=== PATIENT | female | born 1980 | race Caucasian/White ===

== ENCOUNTER 2017-01-26 08:51 | Emergency (ER) | payer SELFPAY ==
[~2017-01-26] VITALS: Ht 157.5 cm; Wt 77.1 kg
[~2017-01-26 08:51] MED LIST: CIPR500T94 PO; PHEN-318 PO
--- NOTE | 2017-01-26 09:15 | PHYS DOC ---
Past History Past Medical History: Anxiety, Depression, Diabetes, Other Past Surgical History: Alcohol Use: Rarely Drug Use: None Adult General Chief Complaint Chief Complaint: MULTIPLE COMPLAINTS HPI HPI Patient is a 36 yo female presenting to ED for evaluation of abdominal pain, nausea, dysuria, vaginal discharge, BL leg cramps. Symptoms have been going off and on for 2 weeks. Pain is in diffuse lower abdomen, pelvic, low back. Nothing makes it better or worse, crampy pain. No fevers, chills, vomiting, diarrhea, constipation. Periods have been irregular with some heavier bleeding. She says she has had 3 C-sections but no other abdominal surgeries. Review of Systems Review of Systems Constitutional: Denies fever or chills [] Cardiovascular: No additional information not addressed in HPI [] GI: + abdominal pain, nausea. No vomiting, bloody stools or diarrhea [] : Denies dysuria or hematuria [] Musculoskeletal: Denies back pain or joint pain [] Integument: Denies rash or skin lesions [] Neurologic: Denies headache, focal weakness or sensory changes [] Allergies Allergies Allergies Coded Allergies Type Severity Reaction Last Updated Verified erythromycin base Allergy Unknown rash/swelling 09/18/15 Yes Physical Exam Physical Exam Constitutional: Well developed, well nourished, no acute distress, non-toxic appearance. [] HENT: Normocephalic, atraumatic, bilateral external ears normal, oropharynx moist, no oral exudates, nose normal. [] Eyes: PERRLA, EOMI, conjunctiva normal, no discharge. [] Cardiovascular:Heart rate regular rhythm, no murmur [] Lungs & Thorax: Bilateral breath sounds clear to auscultation [] Abdomen: Bowel sounds normal, soft, no tenderness, no masses, no pulsatile masses. [] TEST MAN exam revealed thick white vaginal discharge with reddish cervix mucosa. Cervical motion tenderness in addition to left adnexal tenderness but no right adnexal tenderness. Skin: Warm, dry, no erythema, no rash. [] Back: No tenderness, no CVA tenderness. [] Extremities: No tenderness, no cyanosis, no clubbing, ROM intact, no edema. [] Neurologic: Alert and oriented X 3, normal motor function, normal sensory function, no focal deficits noted. [] Current Patient Data Vital Signs Vital Signs Date Time Temp Pulse Resp B/P Pulse Ox O2 Delivery O2 Flow Rate FiO2 01/26/17 08:55 98.6 86 20 99 Room Air EKG EKG [] Radiology/Procedures Radiology/Procedures [] Course & Med Decision Making Course & Med Decision Making Patient with nonspecific abdominal pain with some abnormal disc discharge and cervical motion tenderness on exam. Her repeat abdominal exam is benign. She has nonspecific abdominal pain and has cervicitis may have early PID such she will receive Rocephin and Zithromax here in the emergency department and then told to abstain from sex until the results of her tests come back. Patient also told that she needs to take more iron into her diet and I will prescribe her iron supplements as well. Patient will be prescribed [place] Zofran and iron and told to follow with her primary care provider early next week and come back to the ER sooner with worsening pain fevers vomiting or emergent concerns. Dragon Disclaimer Dragon Disclaimer This chart was dictated in whole or in part using Voice Recognition software in a busy, high-work load, and often noisy Emergency Department environment. It may contain unintended and wholly unrecognized errors or omissions. Departure Departure: Impression: Primary Impression: Cervicitis Additional Impressions: Abdominal pain Anemia Disposition: HOME, SELF-CARE Condition: GOOD Referrals: PCP,NO (PCP) TRAE DAVIDSON MD Patient Instructions: Abdominal Pain (Nonspecific) Additional Instructions: TAKE IBUPROFEN FOR PAIN AND THE NORCO FOR BREAKTHROUGH PAIN. MAKE SURE YOU ARE GETTING MORE IRON IN YOUR DIET. FOLLOW WITH A PRIMARY CARE PROVIDER NEXT WEEK TO ENSURE IMPROVEMENT AND COME BACK TO THE ED SOONER WITH ANY NEW OR WORSENING PAIN, FEVERS, VOMITING, OR OTHER GENERAL CONCERNS. THANK YOU! Problem Qualifiers Additional Impressions: Abdominal pain Abdominal location: lower abdomen, unspecified Qualified Code: R10.30 - Lower abdominal pain, unspecified Anemia Anemia type: iron deficiency Iron deficiency anemia type: inadequate dietary iron intake Qualified Code: D50.8 - Other iron deficiency anemias CLEMENTE ARMAS DO Jan 26, 2017 09:15
[2017-01-26] MEDS: KETOROLAC 30 MG/ML VIAL. IV ONE (09:38)
[2017-01-26] MEDS: ONDANSETRON PF 4 MG/2 ML VIAL. IV ONE (09:38)
[2017-01-26] MEDS: IV NORMAL SALINE 1,000ML 1,000 ML IV SCH (09:39)
[2017-01-26] MEDS ORDERED: HYDR-971 PO ×2 (09:43→10:23)
[2017-01-26 09:57] LABS: BASO % 1 % (0-3); EOS % 0 % (0-3); HEMATOCRIT 28.3 % (36.0-47.0); HEMOGLOBIN 8.5 g/dL (12.0-15.5); LYMPH # 2.5 x10^3/uL (1.0-4.8); LYMPH % 43 % (24-48); MEAN CORPUSCULAR HEMOGLOBIN 18 pg (25-35); MEAN CORPUSCULAR HGB CONC 30 g/dL (31-37); MEAN CORPUSCULAR VOLUME 61 fL (79-100); MONO # 0.4 x10^3/uL (0.0-1.1); MONO % 7 % (0-9); NEUT # 2.9 x10^3uL (1.8-7.7); NEUT % 50 % (31-73); PLATELET COUNT 369 x10^3/uL (140-400); RED BLOOD COUNT 4.65 x10^6/uL (3.50-5.40); RED CELL DISTRIBUTION WIDTH 21.1 % (11.5-14.5); WHITE BLOOD COUNT 5.8 x10^3/uL (4.0-11.0)
[2017-01-26 10:04] LABS: BACTERIA,URINE 0 /HPF (0-FEW); BILIRUBIN,URINE NEG (NEG); CLARITY,URINE CLEAR; COLOR,URINE YELLOW; GLUCOSE,URINE NEG (NEG); NITRITE,URINE NEG (NEG); RBC,URINE RARE /HPF (0-2); SQUAMOUS EPITHELIAL CELL,UR MOD /LPF; UROBILINOGEN,URINE 0.2 mg/dL (0.2 mg/dL); WBC,URINE RARE /HPF (0-4)
[2017-01-26 10:12] LABS: ALBUMIN 3.4 g/dL (3.4-5.0); ALBUMIN/GLOBULIN RATIO 0.8 (1.0-1.7); CALCIUM 8.4 mg/dL (8.5-10.1); CREATININE 0.9 mg/dL (0.6-1.0); GFR 70.5; POTASSIUM 3.9 mmol/L (3.5-5.1); TOTAL BILIRUBIN 0.4 mg/dL (0.2-1.0); TOTAL PROTEIN 7.7 g/dL (6.4-8.2)
[2017-01-26] MEDS ORDERED: ONDA4TAB10 SL (10:23)
[2017-01-26] MEDS ORDERED: DOXY100T PO (10:23)
[2017-01-26] MEDS ORDERED: FERR-26 PO (10:23)
[2017-01-26] MEDS ORDERED: CEFTRIAXONE SODIUM 1 GM VIAL IV ONE (10:27)
[2017-01-26] MEDS ORDERED: IV NORMAL SALINE 50ML 50 ML ONE (10:27)
[2017-01-26] MEDS: CEFTRIAXONE SODIUM 1 GM in IV NORMAL SALINE 50ML 50 ML IV ONE (10:33)
[2017-01-26] MEDS ORDERED: CIPROFLOXACIN HCL 500 MG TABLET PO SCH (10:45)
[2017-01-26 10:46] LABS: ANISOCYTOSIS MOD; HYPOCHROMIA MOD; MICROCYTOSIS MOD; PLT ESTIMATE ADEQUATE (ADEQUATE); POLYCHROMASIA SLIGHT; SPHEROCYTES FEW
[2017-01-26 10:47] LABS: SCHISTOCYTES OCC; TARGET CELLS MOD
[2017-01-26] MEDS: MORPHINE SULFATE 5 MG/ML SYRINGE. IV ONE (11:04)
[2017-01-26] MEDS: AZITHROMYCIN 250 MG TABLET. PO ONE (11:05)
[2017-01-26 11:27] VITALS: BP 151/80
[2017-01-29 19:13] LABS: CHLAMYDIA PROBE Negative (Negative)
== END 2017-01-26 11:10 | disposition home or self-care (01) ==
LOC: ER 08:51
DX: N72 Inflammatory disease of cervix uteri (principal); R10.9 Unspecified abdominal pain; D64.9 Anemia, unspecified; E11.9 Type 2 diabetes mellitus without complications; Z88.1 Allergy status to other antibiotic agents
CPT/HCPCS: 36415; 80053; 81001; 81025; 82550; 83690; 85008; 85027; 87491; 87591; 96361; 96365; 96375; 99284; J0456; J0696; J1885; J2270; J2405; Q0111; J7030

== ENCOUNTER 2017-05-10 21:41 | Emergency (ER) | payer SELFPAY ==
[~2017-05-10] VITALS: Ht 157.5 cm; Wt 77.1 kg
[~2017-05-10 21:41] MED LIST changes: +DOXY100T PO; +FERR-26 PO; +HYDR-971 PO; +ONDA4TAB10 SL
[2017-05-10 22:26] LABS: COLOR,URINE STRAW
[2017-05-10 22:27] LABS: BACTERIA,URINE 0 /HPF (0-FEW); BILIRUBIN,URINE NEG (NEG); CLARITY,URINE CLEAR; GLUCOSE,URINE NEG (NEG); NITRITE,URINE NEG (NEG); RBC,URINE OCC /HPF (0-2); SQUAMOUS EPITHELIAL CELL,UR MOD /LPF; UROBILINOGEN,URINE 0.2 mg/dL (0.2 mg/dL)
[2017-05-10] MEDS ORDERED: ACET325T9 PO (22:42)
[2017-05-10] MEDS ORDERED: SULF1TAB24 PO (22:42)
[2017-05-10] MEDS ORDERED: NAPR275T59 PO (22:42)
--- NOTE | 2017-05-10 22:43 | PHYS DOC ---
Past History Past Medical History: Anxiety, Depression, Diabetes, Other Past Surgical History: Alcohol Use: Rarely Drug Use: None Adult General Chief Complaint Chief Complaint: ABSCESS [facility] HPI Patient is a pleasant 37-year-old female who presents with a history of 4 days of localized swelling and redness to the inside of her right groin. She does shave that area of her groin and she knows he small area of raised tissue that gotten progressively more tender and larger over the last 4 days. The pain is worse when she walks she also describes a mild dysuria subjective chills and fevers as well. She also has some noted some lymphadenopathy in that right inguinal crease. She has had a prior cervicitis in the past but denies any new history of sexual transmitted diseases she has not had any new sexual contacts or trauma to her vagina. Patient denies any vaginal bleeding or discharge. She also denies any back pain, nausea, vomiting, diarrhea or the possibility that she is . Pain is a moderate for 10 worse with certain movements. Which is why she came in tonight because the sharp pains gotten progressively worse. She's never had an abscess or prior infection of the lower pelvis Review of Systems Review of Systems Constitutional: Subjective fevers and chills at home Eyes: Denies change in visual acuity, redness, or eye pain [] HENT: Denies nasal congestion or sore throat [] Respiratory: Denies cough or shortness of breath [] Cardiovascular: No additional information not addressed in HPI [] GI: Denies abdominal pain, nausea, vomiting, bloody stools or diarrhea [] : Patient has described a little dysuria and pain with walking. Musculoskeletal: Denies back pain or joint pain [] Integument: Denies rash or skin lesions [] Neurologic: Denies headache, focal weakness or sensory changes [] Endocrine: Denies polyuria or polydipsia [] Allergies Allergies Allergies Coded Allergies Type Severity Reaction Last Updated Verified erythromycin base Allergy Unknown rash/swelling 09/18/15 Yes Physical Exam Physical Exam Agents vital signs are stable she is afebrile her blood pressure is 132/98 Constitutional: Well developed, well nourished, no acute distress, non-toxic appearance. [] Cardiovascular:Heart rate regular rhythm, no murmur [] Lungs & Thorax: Bilateral breath sounds clear to auscultation [] Abdomen: Bowel sounds normal, soft, no tenderness, no masses, no pulsatile masses. [] Skin: Small 1 cm x 2 similar area of induration and swelling in the right inguinal crease about 2 cm lateral of the labia majora on the right. It is well- demarcated with mild erythema. There is minimal soft tissue swelling or induration of the tissue. There is no point of drainage Back: No tenderness, no CVA tenderness. [] Neurologic: Alert and oriented X 3, Psychologic: Affect normal, judgement normal, mood normal. [] Current Patient Data Lab Results Laboratory Tests Test 05/10/17 21:50 Urine Collection Type Unknown Urine Color Straw Urine Clarity Clear Urine pH 5.5 Urine Specific [place] 1.015 Urine Protein Neg (NEG-TRACE) Urine Glucose (UA) Neg mg/dL (NEG) Urine Ketones (Stick) Neg mg/dL (NEG) Urine Blood Neg (NEG) Urine Nitrite Neg (NEG) Urine Bilirubin Neg (NEG) Urine Urobilinogen Dipstick 0.2 mg/dL (0.2 mg/dL) Urine Leukocyte Esterase Neg (NEG) Urine RBC Occ /HPF (0-2) Urine WBC 1-4 /HPF (0-4) Urine Squamous Epithelial Cells Mod /LPF Urine Bacteria 0 /HPF (0-FEW) EKG EKG [] Radiology/Procedures Radiology/Procedures [] Course & Med Decision Making Course & Med Decision Making Pertinent Labs and Imaging studies reviewed. (See chart for details) she presents with suspected early abscess of the right lower groin. It is likely associated with shaving and a small inguinal infected hair is gotten progressively worse. We did a bedside ultrasound given the size and location of the wound there is no obvious collection of fluid located below the surface of the tissues. This is an early abscess at best not amenable to I&D at this time. Patient be placed on appropriate pain medications antibiotics and close follow- up to ensure that drainage is not facilitated by I&D. Rand is clearly show signs of epithelial cells signs of contamination but no leuk esterase, no nitrates, no white blood cells and no bacteria. [] Dragon Disclaimer Dragon Disclaimer This chart was dictated in whole or in part using Voice Recognition software in a busy, high-work load, and often noisy Emergency Department environment. It may contain unintended and wholly unrecognized errors or omissions. Departure Departure: Impression: Primary Impression: Cellulitis Disposition: HOME, SELF-CARE Condition: STABLE Referrals: PCP,VICK (PCP) Patient Instructions: Cellulitis Additional Instructions: These return for any new or increasing symptoms despite treatment please return if you have any question concerns, fevers, chills or spreading of this wound or lesion. Scripts Acetaminophen (TYLENOL) 325 Mg Tablet 1-2 TAB PO QID, #30 TAB 2 Refills Prov: SHANNON VANEGAS MD 05/10/17 Naproxen Sodium (NAPROXEN SODIUM) 275 Mg Tablet 275 MG PO BID for 7 Days, #14 TAB Prov: SHANNON VANEGAS MD 05/10/17 Sulfamethoxazole/Trimethoprim (BACTRIM DS TABLET) 1 Each Tablet 1 TAB PO BID, #20 TAB Prov: SHANNON VANEGAS MD 05/10/17 SHANNON VANEGAS MD May 10, 2017 22:43
[2017-05-10] MEDS ORDERED: NAPROXEN 500 MG TABLET PO ONE (23:00)
[2017-05-10] MEDS ORDERED: SMZ/TMP 800/160MG TABLET. PO ONE (23:00)
[2017-05-10 23:12] VITALS: BP 132/89
== END 2017-05-10 23:05 | disposition home or self-care (01) ==
LOC: ER 21:41
DX: L03.311 Cellulitis of abdominal wall (principal); E11.9 Type 2 diabetes mellitus without complications; Z88.1 Allergy status to other antibiotic agents
CPT/HCPCS: 81001; 99284-25

== ENCOUNTER 2018-05-18 20:07 | Emergency (ER) | payer SELFPAY ==
[~2018-05-18] VITALS: Ht 157.5 cm; Wt 77.1 kg
[~2018-05-18 20:07] MED LIST changes: +ACET325T9 PO; -FERR-26 PO; +FERR325T14 PO; +NAPR275T59 PO; +SULF1TAB24 PO
[2018-05-18] MEDS ORDERED: IV NORMAL SALINE 1,000ML 1,000 ML IV ONE (20:45)
--- NOTE | 2018-05-18 20:48 | PHYS DOC ---
Past History Past Medical History: Diabetes, Fibromyalgia Past Surgical History: Alcohol Use: None Drug Use: None Adult General Chief Complaint Chief Complaint: ABDOMINAL PAIN IN HPI HPI 38-year-old female presents with right lower quadrant abdominal pain for 2 days. The patient took a home test that was positive. Her last period was April 06. She presents today because she has been having right lower quadrant cramping and an increase in vaginal discharge. She describes the discharge edge of a yellowish color and it is been heavier today than yesterday. Patient has a history of both bacterial infections as well as yeast infections. She states that it is pruritic at this time. She has had Diflucan in the past with good results. Patient denies fever or chills. She denies any vaginal bleeding or spotting. She would like to have a GC chlamydia done "just in case". The patient has not had an ultrasound yet. Review of Systems Review of Systems Constitutional: Denies fever or chills [] Eyes: Denies change in visual acuity, redness, or eye pain [] HENT: Denies nasal congestion or sore throat [] Respiratory: Denies cough or shortness of breath [] Cardiovascular: No additional information not addressed in HPI [] GI: Right lower quadrant abdominal pain[] : Change in vaginal discharge, pruritus of the vagina[] Musculoskeletal: Denies back pain or joint pain [] Integument: Denies rash or skin lesions [] Neurologic: Denies headache, focal weakness or sensory changes [] Endocrine: Denies polyuria or polydipsia [] All other systems were reviewed and found to be within normal limits, except as documented in this note. Current Medications Current Medications Current Medications Medications (Trade) Dose Ordered Sig/Yola Start Time Stop Time Status Last Admin Dose Admin Sodium Chloride 1,000 ml @ 1,000 mls/hr 1X ONCE 05/18/18 20:45 05/18/18 21:44 Allergies Allergies Allergies Coded Allergies Type Severity Reaction Last Updated Verified erythromycin base Allergy Unknown rash/swelling 09/18/15 Yes Physical Exam Physical Exam Constitutional: Well developed, well nourished, no acute distress, non-toxic appearance. [] HENT: Normocephalic, atraumatic, bilateral external ears normal, oropharynx moist, no oral exudates, nose normal. [] Eyes: PERRLA, EOMI, conjunctiva normal, no discharge. [] Neck: Normal range of motion, no tenderness, supple, no stridor. [] Cardiovascular:Heart rate regular rhythm, no murmur [] Lungs & Thorax: Bilateral breath sounds clear to auscultation [] Abdomen: Mild tenderness in the right lower quadrant without guarding or rebound. [] Skin: Warm, dry, no erythema, no rash. [] Back: No tenderness, no CVA tenderness. [] Extremities: No tenderness, no cyanosis, no clubbing, ROM intact, no edema. [] Neurologic: Alert and oriented X 3, normal motor function, normal sensory function, no focal deficits noted. [] Psychologic: Affect normal, judgement normal, mood normal. : [] Current Patient Data Lab Results Laboratory Tests Test 05/18/18 19:41 POC Urine HCG, Qualitative hcg positive (Negative) EKG EKG [] Radiology/Procedures Radiology/Procedures [] Impressions: Indication:PELVIC CRAMPING X'S 1 WEEK. TECHNIQUE: Grayscale, color Doppler and spectral waveform images of the pelvis obtained. COMPARISON: None FINDINGS: The uterus measures 9.7 x 6.4 x 5.2 cm. Single intrauterine gestation sac is seen. The right ovary measures 2.3 x 3.2 x 2.1 cm and demonstrates evidence of blood flow. 2.0 x 1.9 x 1.7 cm well-circumscribed hypoechoic lesion is seen in the right ovary. The left ovary measures 2.0 x 2.3 x 2.0 cm and demonstrates evidence of blood flow. Healed sac is seen. [place]-rump length measures 0.33 cm corresponding to estimated gestation age of 6 weeks 0 days. Activity is seen in the rate of 131 bpm. IMPRESSION: 1. Single viable intrauterine corresponding to estimated gestation age of 6 weeks 0 days. 2. Likely corpus luteal cyst of in the right ovary. Electronically signed by: Krishan Guajardo DO (05/18/2018 10:54 PM) [facility] DICTATED AND SIGNED BY: KRISHAN GUAJARDO DO DATE: 05/18/180 CC: MERLIN ALATORRE DO; PCP,NO ~ Course & Med Decision Making Course & Med Decision Making Pertinent Labs and Imaging studies reviewed. (See chart for details) The patient urine is positive. Her serum is also positive. Her ultrasound shows 1 intrauterine fetus with an appropriate heart rate about 6 weeks gestation. The patient's results were significant for a UTI, BV, and a yeast infection. I will treat the patient with Augmentin for the UTI, metronidazole for the BV, and Diflucan for the yeast infection. I'll give her first dose of each of these in the ED and then a 5 day prescription for Augmentin, 7 days for metronidazole , and a single dose 150 mg Diflucan assuming her yeast infection may return after using these 2 antibiotics. The patient is stable for discharge at this time. [] Dragon Disclaimer Dragon Disclaimer This electronic medical record was generated, in whole or in part, using a voice recognition dictation system. Departure Departure: Referrals: PCP,VICK (PCP) Scripts Amoxicillin/Potassium Clav (AUGMENTIN 875-125 TABLET) 1 Each Tablet 1 TAB PO BID for 5 Days, #10 TAB Prov: MERLIN ALATORRE DO 05/19/18 Metronidazole (METRONIDAZOLE) 500 Mg Tablet 1 TAB PO BID, #14 TAB Prov: MERLIN ALATORRE DO 05/19/18 Fluconazole (DIFLUCAN) 150 Mg Tablet 1 TAB PO ONCE, #1 TAB 1 Refill Prov: MERLIN ALATORRE DO 05/19/18 MERLIN ALATORRE DO May 18, 2018 20:48
[2018-05-18 20:55] LABS: BASO % 1 % (0-3); EOS # 0.1 x10^3/uL (0.0-0.7); EOS % 1 % (0-3); HEMATOCRIT 31.5 % (36.0-47.0); HEMOGLOBIN 10.1 g/dL (12.0-15.5); LYMPH # 2.2 x10^3/uL (1.0-4.8); LYMPH % 29 % (24-48); MEAN CORPUSCULAR HEMOGLOBIN 24 pg (25-35); MEAN CORPUSCULAR HGB CONC 32 g/dL (31-37); MEAN CORPUSCULAR VOLUME 74 fL (79-100); MONO # 0.8 x10^3/uL (0.0-1.1); MONO % 10 % (0-9); NEUT # 4.5 x10^3uL (1.8-7.7); NEUT % 60 % (31-73); PLATELET COUNT 443 x10^3/uL (140-400); RED BLOOD COUNT 4.24 x10^6/uL (3.50-5.40); WHITE BLOOD COUNT 7.6 x10^3/uL (4.0-11.0)
[2018-05-18 21:03] LABS: CALCIUM 8.3 mg/dL (8.5-10.1); CREATININE 0.9 mg/dL (0.6-1.0); GFR 69.7; POTASSIUM 3.9 mmol/L (3.5-5.1)
[2018-05-18 21:03] LABS: BILIRUBIN,URINE NEG (NEG); CLARITY,URINE CLOUDY; COLOR,URINE YELLOW; GLUCOSE,URINE NEG (NEG); NITRITE,URINE NEG (NEG); UROBILINOGEN,URINE 0.2 mg/dL (0.2 mg/dL)
[2018-05-18 21:04] LABS: BACTERIA,URINE MANY /HPF (0-FEW)
[2018-05-18 21:05] LABS: SQUAMOUS EPITHELIAL CELL,UR MANY /LPF; YEAST,URINE PRESENT /HPF
[2018-05-18 21:20] LABS: ANISOCYTOSIS MOD; HYPOCHROMIA SLIGHT; MICROCYTOSIS SLIGHT; PLT ESTIMATE INCREASED (ADEQUATE)
[2018-05-18 21:21] LABS: OVALOCYTES OCC; POIKILOCYTOSIS SLIGHT; POLYCHROMASIA SLIGHT; TEAR DROP CELLS OCC
--- NOTE | 2018-05-18 22:58 | RAD ---
Indication:PELVIC CRAMPING X'S 1 WEEK. TECHNIQUE: Grayscale, color Doppler and spectral waveform images of the pelvis obtained. COMPARISON: None FINDINGS: The uterus measures 9.7 x 6.4 x 5.2 cm. Single intrauterine gestation sac is seen. The right ovary measures 2.3 x 3.2 x 2.1 cm and demonstrates evidence of blood flow. 2.0 x 1.9 x 1.7 cm well-circumscribed hypoechoic lesion is seen in the right ovary. The left ovary measures 2.0 x 2.3 x 2.0 cm and demonstrates evidence of blood flow. Healed sac is seen. [place]-rump length measures 0.33 cm corresponding to estimated gestation age of 6 weeks 0 days. Activity is seen in the rate of 131 bpm. IMPRESSION: 1. Single viable intrauterine corresponding to estimated gestation age of 6 weeks 0 days. 2. Likely corpus luteal cyst of in the right ovary. Electronically signed by: Krishan Linton DO (05/18/2018 10:54 PM) [facility]
[2018-05-18] MEDS ORDERED: AMOXICILLIN/K CLAV 875/125MG TABLET. PO ONE (23:45)
[2018-05-19] MEDS ORDERED: FLUC150T PO (00:02)
[2018-05-19] MEDS ORDERED: AMOX1TAB61 PO (00:02)
[2018-05-19] MEDS ORDERED: METR500T8 PO (00:02)
[2018-05-19] MEDS ORDERED: metroNIDAZOLE 500 MG TABLET ONE (00:11)
[2018-05-19] MEDS ORDERED: FLUCONAZOLE 100 MG TABLET. ONE ×2 (00:11)
[2018-05-19 00:15] VITALS: BP 123/84
[2018-05-19] MEDS ORDERED: FLUCONAZOLE 100 MG TABLET. PO ONE (00:30)
[2018-05-19] MEDS ORDERED: metroNIDAZOLE 500 MG TABLET PO ONE (00:30)
[2018-05-20 15:13] LABS: CHLAMYDIA PROBE Negative (Negative)
== END 2018-05-19 00:17 | disposition home or self-care (01) ==
LOC: ER 20:07
DX: O23.41 Unspecified infection of urinary tract in pregnancy, first trimester (principal); O23.591 Infection of other part of genital tract in pregnancy, first trimester; B96.89 Other specified bacterial agents as the cause of diseases classified elsewhere; O98.811 Other maternal infectious and parasitic diseases complicating pregnancy, first trimester; O24.911 Unspecified diabetes mellitus in pregnancy, first trimester; M79.7 Fibromyalgia; Z98.890 Other specified postprocedural states; Z88.1 Allergy status to other antibiotic agents; Z3A.01 Less than 8 weeks gestation of pregnancy
CPT/HCPCS: 36415; 76801; 80048; 81001; 81025; 84702; 85025; 87491; 87591; 99285; Q0111; J7030

== ENCOUNTER 2018-06-09 11:49 | Emergency (ER) | payer OTHER ==
[~2018-06-09] VITALS: Ht 157.5 cm; Wt 80.0 kg
[~2018-06-09 11:49] MED LIST changes: +AMOX1TAB61 PO; +FLUC150T PO; +METR500T8 PO
[2018-06-09 12:56] LABS: BILIRUBIN,URINE NEG (NEG); CLARITY,URINE TURBID; COLOR,URINE YELLOW; GLUCOSE,URINE NEG (NEG)
[2018-06-09 12:57] LABS: BACTERIA,URINE FEW /HPF (0-FEW); NITRITE,URINE NEG (NEG); RBC,URINE >40 /HPF (0-2); SQUAMOUS EPITHELIAL CELL,UR MANY /LPF; UROBILINOGEN,URINE 0.2 mg/dL (0.2 mg/dL); WBC,URINE 20-40 /HPF (0-4)
[2018-06-09 13:37] VITALS: BP 115/72
[2018-06-09] MEDS ORDERED: CEPH-264 PO (13:40)
--- NOTE | 2018-06-09 13:40 | PHYS DOC ---
Past History Past Medical History: Diabetes, Fibromyalgia, Migraines Past Surgical History: Alcohol Use: None Drug Use: None Adult General Chief Complaint Chief Complaint: PAIN ON URINATION HPI HPI Patient is a 38 year old female who presents with urinary frequency. Patient is L3 A1 at 9 weeks of gestation complaining of urinary frequency and dysuria since this morning without abdominal pain. Patient denies vaginal bleeding and discharge and pain during intercourse. Patient was seen 2 weeks ago with the same symptoms and had extensive evaluation including ultrasound that showed intrauterine and came with improvement of her condition. Review of Systems Review of Systems Constitutional: Denies fever or chills [] Eyes: Denies change in visual acuity, redness, or eye pain [] HENT: Denies nasal congestion or sore throat [] Respiratory: Denies cough or shortness of breath [] Cardiovascular: No additional information not addressed in HPI [] GI: Denies abdominal pain, nausea, vomiting, bloody stools or diarrhea [] : Reports urinary frequency and dysuria, denies hematuria Musculoskeletal: Denies back pain or joint pain [] Integument: Denies rash or skin lesions [] Neurologic: Denies headache, focal weakness or sensory changes [] Endocrine: Denies polyuria or polydipsia [] All other systems were reviewed and found to be within normal limits, except as documented in this note. Current Medications Current Medications Current Medications Medications (Trade) Dose Ordered Sig/Yola Start Time Stop Time Status Last Admin Dose Admin Ceftriaxone Sodium (Rocephin Im) 1 gm 1X ONCE 06/09/18 13:45 06/09/18 13:46 Allergies Allergies Allergies Coded Allergies Type Severity Reaction Last Updated Verified erythromycin base Allergy Unknown rash/swelling 09/18/15 Yes Physical Exam Physical Exam Constitutional: Well developed, well nourished, no acute distress, non-toxic appearance. [] HENT: Normocephalic, atraumatic Eyes: PERRLA, EOMI, conjunctiva normal, no discharge. [] Neck: Normal range of motion, no tenderness, supple, no stridor. [] Cardiovascular:Heart rate regular rhythm, no murmur [] Lungs & Thorax: Bilateral breath sounds clear to auscultation [] Abdomen: Bowel sounds normal, soft, no tenderness, no masses, no pulsatile masses. [] Skin: Warm, dry, no erythema, no rash. [] Back: No tenderness, no CVA tenderness. [] Extremities: No tenderness, no cyanosis, no clubbing, ROM intact, no edema. [] Neurologic: Alert and oriented X 3, normal motor function, normal sensory function, no focal deficits noted. [] Psychologic: Affect normal, judgement normal, mood normal. [] Current Patient Data Vital Signs Vital Signs Date Time Temp Pulse Resp B/P (MAP) Pulse Ox O2 Delivery O2 Flow Rate FiO2 06/09/18 12:00 98.1 84 18 99 Room Air Lab Results Laboratory Tests Test 06/09/18 12:14 Urine Collection Type Unknown Urine Color Yellow Urine Clarity Turbid Urine pH 5.5 Urine Specific [place] 1.015 Urine Protein 30 mg/dl (NEG-TRACE) Urine Glucose (UA) Neg mg/dL (NEG) Urine Ketones (Stick) Neg mg/dL (NEG) Urine Blood Large (NEG) Urine Nitrite Neg (NEG) Urine Bilirubin Neg (NEG) Urine Urobilinogen Dipstick 0.2 mg/dL (0.2 mg/dL) Urine Leukocyte Esterase Large (NEG) Urine RBC >40 /HPF (0-2) Urine WBC 20-40 /HPF (0-4) Urine Squamous Epithelial Cells Many /LPF Urine Bacteria Few /HPF (0-FEW) Urine Mucus Slight /LPF EKG EKG [] Radiology/Procedures Radiology/Procedures [] Course & Med Decision Making Course & Med Decision Making Pertinent Labs reviewed. (See chart for details) Evaluation of patient in ER showed 38-year-old female patient at 9 weeks of gestation with complaining of urinary frequency and dysuria since this morning. Patient was recently treated with Augmentin for UTI. Patient had unremarkable physical exam. UA showed 20-40 WBC and blood in urine. Patient treated with a dose of Rocephin in ER and plan discharge patient home with diagnosis of UTI and follow up with her BUDDER. Dragon Disclaimer Dragon Disclaimer This electronic medical record was generated, in whole or in part, using a voice recognition dictation system. Departure Departure: Impression: Primary Impression: Urinary tract infection during Disposition: HOME, SELF-CARE (at 1337) Condition: IMPROVED Referrals: PCP,NO (PCP) Patient Instructions: - Urinary Tract Infection Additional Instructions: Drink plenty of liquids Follow-up with your BUDDER in 3-5 days Return to ER if not getting better Scripts Cephalexin (KEFLEX) 500 Mg Capsule 1 CAP PO Q6HRS, #28 CAP Prov: ZAK LOPEZ MD 06/09/18 ZAK LOPEZ MD Jun 09, 2018 13:40
[2018-06-09] MEDS ORDERED: cefTRIAXone IM 1 GM VIAL IM ONE (13:45)
== END 2018-06-09 13:46 | disposition home or self-care (01) ==
LOC: ER 11:49
DX: O23.41 Unspecified infection of urinary tract in pregnancy, first trimester (principal); E11.9 Type 2 diabetes mellitus without complications; M79.7 Fibromyalgia; G43.909 Migraine, unspecified, not intractable, without status migrainosus; Z98.890 Other specified postprocedural states; Z88.1 Allergy status to other antibiotic agents; Z3A.09 9 weeks gestation of pregnancy
CPT/HCPCS: 81001; 87086; 96372; 99284; J0696

== ENCOUNTER 2021-03-18 12:26 | Emergency (ER) | payer OTHER ==
[~2021-03-18] VITALS: Ht 157.5 cm; Wt 80.0 kg
[~2021-03-18 12:26] MED LIST changes: +CEPH-264 PO; +HYDR-3165 PO; -HYDR-971 PO; +METR-34 PO; -METR500T8 PO
[2021-03-18 12:32] VITALS: BP 149/90
[2021-03-18] MEDS ORDERED: IBUPROFEN 800 MG TABLET. PO ONE (13:00)
--- NOTE | 2021-03-18 13:05 | PHYS DOC ---
Past History Past Medical History: Diabetes, Fibromyalgia, Migraines Past Surgical History: Alcohol Use: None Drug Use: None General Adult EDM: Chief Complaint: ANKLE PROBLEM HPI: HPI: Patient is a 41-year-old female coming in for right ankle pain and swelling. Patient was working and did not see a bump in the sidewalk and inverted her ankle and fell to the right side. Had some pain in her right side of her hip and her knee, but states has been better. Is not concerned about any injuries and has no to ambulate with pain. Concerned of pain and swelling to right ankle. Denies any previous injury to that ankle. Otherwise has been well. Does not take blood thinners. Denies any possibility of . Review of Systems: Review of Systems: All other systems within normal limits except for as noted in the HPI Current Medications: Current Meds: Current Medications Medications (Trade) Dose Ordered Sig/Yola Start Time Stop Time Status Last Admin Dose Admin Ibuprofen (Motrin) 800 mg 1X ONCE 03/18/21 13:00 03/18/21 13:01 UNV Allergies: Allergies: Allergies Coded Allergies Type Severity Reaction Last Updated Verified erythromycin base Allergy Unknown rash/swelling 09/18/15 Yes Physical Exam: PE: Constitutional: Well developed, well nourished, no acute distress, non-toxic appearance. [] HENT: Normocephalic, atraumatic, bilateral external ears normal, nose normal. [] Eyes: PERRLA, conjunctiva normal, no discharge. [] Neck: No rigidity, supple, no stridor. [] Cardiovascular: Regular rate and rhythm, brisk cap refill [] Lungs & Thorax: Non labored symmetric respirations, no tachypnea or respiratory distress [] Abdomen: Soft, nondistended. Skin: Warm, dry, no erythema, no rash. [] Back: Unremarkable Extremities: No deformities, range of motion grossly intact, no lower extremity edema. Right ankle exam: Swelling over lateral malleolus, no tenderness on medial malleolus, calcaneus, dorsum of the foot, or fifth metatarsal. [] Neurologic: Alert and oriented X 3, no focal deficits noted. [] Psychologic: Affect normal, judgement normal, mood normal. [] EKG: EKG: [] Radiology/Procedures: Radiology/Procedures: [place] [id number] IMAGING REPORT Signed PATIENT: ALLA DIAS ACCOUNT: [id number] : 1980 LOCATION: ER AGE: 41 SEX: F EXAM STATUS: REG ER ORD. PHYSICIAN: AJIT MEJIA MD REASON: lateral pain, swelling PROCEDURE: ANKLE RIGHT 3V Examination: 3 views of the right ankle HISTORY: History of lateral right ankle pain COMPARISON: None available FINDINGS: The alignment of the ankle mortise grossly appears unremarkable. Mild soft tis anabelle swelling identified lateral to lateral malleolus. IMPRESSION: Mild soft tissue swelling identified lateral to lateral malleolus likely soft tissue injury. Electronically signed by: Alejo Raphael MD (03/18/2021 1:17 PM) [id number] DICTATED AND SIGNED BY: ALEJO RAPHAEL MD DATE: 03/18/211309 CC: AJIT MEJIA MD; PCP,NO ~MTH0 0 [] Heart Score: C/O Chest Pain: No Risk Factors: Risk Factors: DM, Current or recent (<one month) smoker, HTN, HLP, family history of CAD, obesity. Risk Scores: Score 0 - 3: 2.5% MACE over next 6 weeks - Discharge Home Score 4 - 6: 20.3% MACE over next 6 weeks - Admit for Clinical Observation Score 7 - 10: 72.7% MACE over next 6 weeks - Early Invasive Strategies Course & Med Decision Making: Course & Med Decision Making Pertinent Labs and Imaging studies reviewed. (See chart for details) [] Dragon Disclaimer: Dragon Disclaimer: This electronic medical record was generated, in whole or in part, using a voice recognition dictation system. Departure Departure: Impression: Primary Impression: Moderate right ankle sprain Disposition: 01 HOME / SELF CARE / HOMELESS Condition: STABLE Referrals: PCP,NO (PCP) Patient Instructions: RICE - Routine Care for Injuries Scripts Ibuprofen (IBUPROFEN) 800 Mg Tablet 1 TAB PO TID PRN for PAIN, #30 TAB Prov: AJIT MEJIA MD 03/18/21 AJIT MEJIA MD Mar 18, 2021 13:04
--- NOTE | 2021-03-18 13:20 | RAD ---
Examination: 3 views of the right ankle HISTORY: History of lateral right ankle pain COMPARISON: None available FINDINGS: The alignment of the ankle mortise grossly appears unremarkable. Mild soft tissue swelling identified lateral to lateral malleolus. IMPRESSION: Mild soft tissue swelling identified lateral to lateral malleolus likely soft tissue injury. Electronically signed by: Alejo Raphael MD (03/18/2021 1:17 PM) [id number]
[2021-03-18] MEDS ORDERED: IBUP800T19 PO (13:26)
== END 2021-03-18 13:50 | disposition home or self-care (01) ==
LOC: ER 12:26
DX: S93.401A Sprain of unspecified ligament of right ankle, initial encounter (principal); E11.9 Type 2 diabetes mellitus without complications; Z88.1 Allergy status to other antibiotic agents; W18.39XA Other fall on same level, initial encounter; Y93.89 Activity, other specified; Y92.89 Other specified places as the place of occurrence of the external cause; Y99.8 Other external cause status
CPT/HCPCS: 36415; 73610; 82164; 99283-25

== ENCOUNTER 2022-02-06 20:16 | Emergency (ER) | payer SELFPAY ==
[~2022-02-06] VITALS: Ht 157.5 cm; Wt 86.4 kg
[~2022-02-06 20:16] MED LIST changes: +IBUP800T19 PO
--- NOTE | 2022-02-06 20:39 | PHYS DOC ---
Past History Past Medical History: Diabetes, Fibromyalgia, Migraines Additional Past Medical Histor: pseudotumor cerebrae Past Surgical History: Alcohol Use: None Drug Use: None General Adult EDM: Chief Complaint: CHEST PAIN HPI: HPI: 41-year-old female presents with elevated blood pressure and chest discomfort. The patient was at [facility] taking her blood pressure on a machine and it was 200s over 1 teens. This really freaked the patient out so she came to the emergency room. She also states having some mild chest pressure at the same time. The patient is supposed to be on blood pressure medicine but does not have insurance so she does not see a doctor and does not have any prescriptions. She has not been on them for quite some time. She denies shortness of breath or diaphoresis. She has no other complaints this time. On arrival her blood pressure is 161/109. Review of Systems: Review of Systems: Constitutional: Denies fever or chills Eyes: Denies change in visual acuity HENT: Denies nasal congestion or sore throat Respiratory: Denies cough or shortness of breath Cardiovascular: Chest pain GI: Denies abdominal pain, nausea, vomiting, bloody stools or diarrhea : Denies dysuria Musculoskeletal: Denies back pain or joint pain Integument: Denies rash Neurologic: Denies headache, focal weakness or sensory changes Endocrine: Denies polyuria or polydipsia Lymphatic: Denies swollen glands Psychiatric: Denies depression or anxiety Allergies: Allergies: Allergies Coded Allergies Type Severity Reaction Last Updated Verified erythromycin base Allergy Unknown rash/swelling 02/06/22 Yes Physical Exam: PE: Constitutional: Well developed, well nourished, obese, no acute distress, non- toxic appearance. [] HENT: Normocephalic, atraumatic, bilateral external ears normal, oropharynx moist, no oral exudates, nose normal. [] Eyes: PERRLA, EOMI, conjunctiva normal, no discharge. [] Neck: Normal range of motion, no tenderness, supple, no stridor. [] Cardiovascular: Heart rate regular rhythm, no murmur [] Lungs & Thorax: Bilateral breath sounds clear to auscultation [] Abdomen: Bowel sounds normal, soft, no tenderness, no masses, no pulsatile masses. [] Skin: Warm, dry, no erythema, no rash. [] Back: No tenderness, no CVA tenderness. [] Extremities: No tenderness, no cyanosis, no clubbing, ROM intact, no edema. [] Neurologic: Alert and oriented X 3, normal motor function, normal sensory function, no focal deficits noted. [] Psychologic: Affect normal, judgement normal, mood normal. [] Current Patient Data: Vital Signs: Vital Signs Date Time Temp Pulse Resp B/P (MAP) Pulse Ox O2 Delivery O2 Flow Rate FiO2 02/06/22 20:20 98.5 77 18 163/87 (112) 97 EKG: EKG: Sinus rhythm, rate 80, normal axis, no ST elevation depression. [] Radiology/Procedures: Radiology/Procedures: [] Heart Score: C/O Chest Pain: Yes HEART Score for Chest Pain: HEART Score for Chest Pain Response (Comments) Value History Slighlty/Non-Suspicious 0 ECG Normal 0 Age < 45 0 Risk Factors 1 or 2 Risk Factors 1 Troponin < Normal Limit 0 Total 1 Risk Factors: Risk Factors: DM, Current or recent (<one month) smoker, HTN, HLP, family history of CAD, obesity. Risk Scores: Score 0 - 3: 2.5% MACE over next 6 weeks - Discharge Home Score 4 - 6: 20.3% MACE over next 6 weeks - Admit for Clinical Observation Score 7 - 10: 72.7% MACE over next 6 weeks - Early Invasive Strategies Course & Med Decision Making: Course & Med Decision Making Pertinent Labs and Imaging studies reviewed. (See chart for details) The patient's EKG is unremarkable. Her labs are unremarkable. Her troponin is negative. I have given her 20 mg of lisinopril for her blood pressure. It is still quite elevated so ordered 0.2 of clonidine. Also given her 10 of hydralazine. I will discharge the patient on lisinopril/hydrochlorothiazide. She will take it daily potassium supplement. She has been on these in the past and tolerated them well. Advise she follow-up with a primary care physician soon as possible. She is stable for discharge at this time. [] Jhonnyon Disclaimer: Cale Disclaimer: This electronic medical record was generated, in whole or in part, using a voice recognition dictation system. Departure Departure: Impression: Primary Impression: Chest pain Additional Impression: Hypertension Disposition: HOME / SELF CARE / HOMELESS Condition: STABLE Referrals: PCP,NO (PCP) Patient Instructions: Chest Pain (Nonspecific), [id number], Hypertension, [id number] Scripts Lisinopril/Hydrochlorothiazide (LISINOPRIL-HCTZ 20-25 MG TAB) 1 Each Tablet 1 TAB PO DAILY for hypertention for 30 Days, #30 TAB Prov: MERLIN ALATORRE DO 02/06/22 MERLIN ALATORRE DO February 06, 2022 20:39
[2022-02-06 20:55] LABS: BASO # 0.1 x10^3/uL (0.0-0.2); BASO % 1 % (0-3); EOS # 0.1 x10^3/uL (0.0-0.7); EOS % 1 % (0-3); HEMATOCRIT 33.5 % (36.0-47.0); HEMOGLOBIN 10.8 g/dL (12.0-15.5); LYMPH # 1.8 x10^3/uL (1.0-4.8); LYMPH % 24 % (24-48); MEAN CORPUSCULAR HEMOGLOBIN 27 pg (25-35); MEAN CORPUSCULAR HGB CONC 32 g/dL (31-37); MEAN CORPUSCULAR VOLUME 83 fL (79-100); MONO # 0.8 x10^3/uL (0.0-1.1); MONO % 11 % (0-9); NEUT # 4.8 x10^3uL (1.8-7.7); NEUT % 63 % (31-73); PLATELET COUNT 258 x10^3/uL (140-400); RED BLOOD COUNT 4.03 x10^6/uL (3.50-5.40); RED CELL DISTRIBUTION WIDTH 15.6 % (11.5-14.5); WHITE BLOOD COUNT 7.6 x10^3/uL (4.0-11.0)
[2022-02-06 21:06] LABS: CREATININE 0.9 mg/dL (0.6-1.0); GFR 68.7; POTASSIUM 3.9 mmol/L (3.5-5.1)
[2022-02-06 21:12] LABS: ALBUMIN 3.3 g/dL (3.4-5.0); ALBUMIN/GLOBULIN RATIO 0.9 (1.0-1.7); TOTAL BILIRUBIN 0.3 mg/dL (0.2-1.0); TOTAL PROTEIN 6.8 g/dL (6.4-8.2)
[2022-02-06] MEDS ORDERED: LISINOPRIL 10 MG TABLET PO ONE (21:30)
[2022-02-06] MEDS ORDERED: cloNIDine HCL 0.1 MG TABLET PO ONE (21:45)
[2022-02-06] MEDS ORDERED: LISI1TAB39 PO (22:16)
[2022-02-06] MEDS ORDERED: hydrALAZINE 20 MG/ML VIAL. IV ONE (22:30)
--- NOTE | 2022-02-06 22:35 | RAD ---
EXAM: AP View of the chest DATE: 02/06/2022 8:58 PM INDICATION: Reason: CP / Spl. Instructions: / History: COMPARISON: No Prior FINDINGS: The heart is not enlarged. Mediastinal and hilar contours are normal. Left lung base opacities possibly atelectasis or developing consolidation. No pleural effusion or pneumothorax. Hiatal hernia is again seen. IMPRESSION: Hernia is again seen. Left lung base opacities possibly atelectasis or developing consolidation. Electronically signed by: David Hilliard MD (02/06/2022 10:32 PM) DINORAH
[2022-02-06 22:51] LABS: BARBITURATES NEG (NEG); BENZODIAZEPINES NEG (NEG); CANNABINOIDS NEG (NEG); COCAINE NEG (NEG); METHADONE NEG (NEG); OPIATES NEG (NEG); PHENCYCLIDINE NEG (NEG)
[2022-02-06 22:53] LABS: AMPHETAMINE/METHAMPHETAMINE NEG (NEG)
[2022-02-06 23:00] LABS: CLARITY,URINE CLEAR; COLOR,URINE ORANGE; GLUCOSE,URINE NEG (NEG); NITRITE,URINE POS (NEG); UROBILINOGEN,URINE 0.2 mg/dL (0.2 mg/dL)
[2022-02-06 23:01] LABS: BACTERIA,URINE MOD /HPF (0-FEW); RBC,URINE OCC /HPF (0-2); SQUAMOUS EPITHELIAL CELL,UR MOD /LPF
[2022-02-06] MEDS ORDERED: CEPH500T PO (23:09)
[2022-02-06] MEDS ORDERED: IV NORMAL SALINE 50ML 50 ML ONE (23:18)
[2022-02-06] MEDS ORDERED: cefTRIAXone SODIUM 1 GM VIAL ONE (23:18)
--- NOTE | 2022-02-06 23:33 | EKG ---
[address] [address] Test Date: 2022-02-06 Test Time: 20:23:49 Pat Name: ALLA DIAS Department: Room: Gender: F [employer]: : 1980 Requested By: MERLIN ALATORRE Order Number: [id number] Reading MD: To Fan Measurements Intervals [place] Rate: 80 P: 41 WV: 124 QRS: 24 QRSD: 80 T: 28 QT: 372 QTc: 433 Interpretive Statements SINUS RHYTHM NORMAL ECG RI6.02 No previous ECG available for comparison Electronically Signed On 02-08-2022 17:14:12 CDT by To Fan
[2022-02-06 23:39] VITALS: BP 146/94
== END 2022-02-06 23:59 | disposition home or self-care (01) ==
LOC: ER 20:16
DX: I10 Essential (primary) hypertension (principal); R07.89 Other chest pain; E11.9 Type 2 diabetes mellitus without complications; M79.7 Fibromyalgia; G43.909 Migraine, unspecified, not intractable, without status migrainosus; Z88.1 Allergy status to other antibiotic agents
CPT/HCPCS: 36415; 71045; 80053; 80307; 81001; 84484; 85025; 87086; 87147; 93005; 96365; 96375; 99285; J0360; J0696